=== PATIENT | male | born 1965 | race Caucasian/White ===

== ENCOUNTER 2018-01-24 07:57 | Day surgery (SDC) | payer BC ==
[2018-01-17 10:48] VITALS: BMI 35.2
[2018-01-24] MEDS ORDERED: PROPOFOL 20 ML ONE ×2 (08:11)
[2018-01-24] MEDS ORDERED: LIDOCAINE HCL/PF 2% SDV 5ML VIAL ONE (08:12)
[2018-01-24 08:27] VITALS: TEMP 98.1
[2018-01-24 10:51] VITALS: BP 110/78; PULSE 88
--- NOTE | 2018-01-26 10:53 | PATH ---
Surgical Pathology Report Patient Name: LEIGH ANN FRANCO [facility]. Rec. #: [id number] /Age/Gender: 1965 (Age: 52) / M Account: [id number] Location: [facility] Taken: 01/24/2018 Received: 01/24/2018 Reported: 01/26/2018 Physicians: Hao Herring M.D. Specimen(s) Received SPLENIC FLEXURE Clinical History Polyp Final Diagnosis SPLENIC FLEXURE, BIOPSY: TUBULAR ADENOMA. Electronically Signed Yany King M.D. Gross Description Received in formalin, labeled "splenic flexure" is one piece of stokes tissue measuring 0.4 cm in greatest dimension. Entirely submitted in one cassette. AE/01/24/2018 ebram/01/24/2018
== END 2018-01-24 11:00 | disposition home or self-care (01) ==
LOC: FASU-ENDO 07:57
PROVIDERS: ATTEND Internal Medicine Gastroenterology
PROC: 0DBL8ZX Excision of Transverse Colon, Via Natural or Artificial Opening Endoscopic, Diagnostic (ICD-10-PCS; principal; 2018-01-24 10:01)
DX: Z86.010 Personal history of colon polyps (principal); D12.3 Benign neoplasm of transverse colon
CPT/HCPCS: 88305-TC

== ENCOUNTER 2023-03-13 11:14 | Day surgery (SDC) | payer BC ==
[2023-03-09 14:44] VITALS: BMI 37.3
[2023-03-13 12:29] VITALS: TEMP 97
[2023-03-13] MEDS ORDERED: PROPOFOL 20 ML ONE (12:37)
[2023-03-13 13:24] VITALS: RESP 16
[2023-03-13 13:25] VITALS: BP 135/78; PULSE 85
== END 2023-03-13 13:45 | disposition home or self-care (01) ==
LOC: FASU-ENDO 11:14
PROVIDERS: ATTEND Internal Medicine Gastroenterology
PROC: 0DBN8ZX Excision of Sigmoid Colon, Via Natural or Artificial Opening Endoscopic, Diagnostic (ICD-10-PCS; principal; 2023-03-13 12:41)
DX: Z12.11 Encounter for screening for malignant neoplasm of colon (principal); D12.5 Benign neoplasm of sigmoid colon; D12.7 Benign neoplasm of rectosigmoid junction; Z86.010 Personal history of colon polyps
CPT/HCPCS: 88305-TC

== ENCOUNTER 2023-11-10 10:37 | Emergency (ER) | payer OTHER, BC ==
[2023-11-10] MEDS ORDERED: DIPHTH,PERTUSS(ACELL),TET 0.5 ML DISP.SYRIN IM ONE (11:17)
[2023-11-10] MEDS: DIPHTH,PERTUSS(ACELL),TET 0.5 ML DISP.SYRIN IM ONE (11:25)
[2023-11-10 12:08] VITALS: BP 148/101; PULSE 97; RESP 18; TEMP 99; BMI 35.9
== END 2023-11-10 12:10 | disposition home or self-care (01) ==
LOC: FER 10:37
PROC: 3E0234Z Introduction of Serum, Toxoid and Vaccine into Muscle, Percutaneous Approach (ICD-10-PCS; principal; 2023-11-10)
DX: S01.81XA Laceration without foreign body of other part of head, initial encounter (principal); W22.8XXA Striking against or struck by other objects, initial encounter; Z23 Encounter for immunization
CPT/HCPCS: 70450-TC; 90715; 99284-25